=== PATIENT | female | born 1995 | race Caucasian/White ===

== ENCOUNTER 2017-07-29 14:15 | Inpatient (IN) | payer BC, SELFPAY ==
[2017-07-29] MEDS: MOM 30ML SUSPENSION UDC PO (09:00)
[2017-07-29] MEDS: KCL 20MEQ IN D5/NS 1000ML 1,000 ML IV ×2 (14:37→23:51)
[2017-07-29] MEDS ORDERED: LEVALBUTEROL 1.25 MG/0.5 ML CONCENTRATE NEB NEB (14:45)
[2017-07-29] MEDS ORDERED: BISACODYL 10 MG SUPP PR (14:45)
[2017-07-29] MEDS ORDERED: PERCOCET 5MG/325MG TAB PO (14:45)
[2017-07-29 15:34] LABS: BASO % 0.4 % (0.0-1.0); EOS # 0.2 10^3/uL (0.0-0.50); EOS % 2.1 % (0.0-3.0); HEMATOCRIT 38.6 % (36.0-47.0); IMMATURE GRANULOCYTE % 0.2 % (0-3.0); LYMPH # 2.2 10^3/uL (1.5-6.5); LYMPH % 26.6 % (24.0-44.0); MEAN CORPUSCULAR HEMOGLOBIN 31.2 pg (27.0-33.0); MEAN CORPUSCULAR HGB CONC 33.7 g/dl (32.0-36.5); MEAN CORPUSCULAR VOLUME 92.6 fl (80.0-96.0); MONO # 0.7 10^3/uL (0.0-0.8); MONO % 8.5 % (0.0-5.0); NEUTROPHILS # 5.1 10^3/uL (1.8-7.7); NEUTROPHILS % 62.2 % (36.0-66.0); PLATELET COUNT, AUTOMATED 336 10^3/uL (150-450); RED BLOOD COUNT 4.17 10^6/uL (4.00-5.40); RED CELL DISTRIBUTION WIDTH 11.9 % (11.5-14.5); WHITE BLOOD COUNT 8.2 10^3/uL (4.0-10.0)
[2017-07-29 15:51] LABS: ANION GAP 9 MEQ/L (8-16); BLOOD UREA NITROGEN 9 MG/DL (7-18); CALCIUM LEVEL 8.7 MG/DL (8.5-10.1); CARBON DIOXIDE LEVEL 24 MEQ/L (21-32); CHLORIDE LEVEL 108 MEQ/L (98-107); GLOMERULAR FILTRATION RATE > 60.0 (>60); GLUCOSE, FASTING 84 MG/DL (70-100); POTASSIUM SERUM 4.1 MEQ/L (3.5-5.1); SODIUM LEVEL 141 MEQ/L (136-145)
[2017-07-29 15:56] LABS: POS COUNT POS FLAG
[2017-07-29] MEDS: NORCO, ANEXSIA 5/325MG TABLET (HYDROcodone/ACETAMINOPHEN) PO (16:03)
[2017-07-29] MEDS: KETOROLAC 30 MG/ML VIAL (J1885) IV ×2 (16:30→20:56)
[2017-07-29] MEDS: PANTOPRAZOLE 40MG TAB (PROTONIX) PO (18:06)
[2017-07-29] MEDS: LEVALBUTEROL 1.25 MG/0.5 ML CONCENTRATE NEB NEB (19:25)
[2017-07-29 20:56] LABS: PROTHROMBIN TIME 12.2 SECONDS (12.4-14.5)
[2017-07-29] MEDS: HEPARIN SOD (PORCINE) 5000 UNITS/ML VIAL SC (20:56)
[2017-07-29] MEDS: DOCUSATE SODIUM 100 MG CAP PO (20:57)
[2017-07-30] MEDS: LEVALBUTEROL 1.25 MG/0.5 ML CONCENTRATE NEB NEB ×4 (01:36→20:00)
[2017-07-30] MEDS: KETOROLAC 30 MG/ML VIAL (J1885) IV ×4 (03:15→21:13)
[2017-07-30 04:41] LABS: BASO % 0.3 % (0.0-1.0); EOS # 0.1 10^3/uL (0.0-0.50); EOS % 1.8 % (0.0-3.0); HEMATOCRIT 33.8 % (36.0-47.0); HEMOGLOBIN 11.2 g/dl (12.0-16.0); IMMATURE GRANULOCYTE % 0.3 % (0-3.0); LYMPH # 2.5 10^3/uL (1.5-6.5); LYMPH % 34.2 % (24.0-44.0); MEAN CORPUSCULAR HEMOGLOBIN 30.4 pg (27.0-33.0); MEAN CORPUSCULAR HGB CONC 33.1 g/dl (32.0-36.5); MEAN CORPUSCULAR VOLUME 91.6 fl (80.0-96.0); MONO # 0.7 10^3/uL (0.0-0.8); MONO % 9.4 % (0.0-5.0); PLATELET COUNT, AUTOMATED 273 10^3/uL (150-450); RED BLOOD COUNT 3.69 10^6/uL (4.00-5.40); RED CELL DISTRIBUTION WIDTH 11.9 % (11.5-14.5); WHITE BLOOD COUNT 7.4 10^3/uL (4.0-10.0)
[2017-07-30 05:15] LABS: ANION GAP 5 MEQ/L (8-16); BLOOD UREA NITROGEN 8 MG/DL (7-18); CALCIUM LEVEL 8.5 MG/DL (8.5-10.1); CARBON DIOXIDE LEVEL 25 MEQ/L (21-32); CHLORIDE LEVEL 111 MEQ/L (98-107); CREATININE FOR GFR 0.62 MG/DL (0.55-1.30); GLOMERULAR FILTRATION RATE > 60.0 (>60); GLUCOSE, FASTING 100 MG/DL (70-100); POTASSIUM SERUM 3.8 MEQ/L (3.5-5.1); SODIUM LEVEL 141 MEQ/L (136-145)
[2017-07-30] MEDS: LEVOTHYROXINE 75MCG TABLET (0.075MG) PO (05:50)
[2017-07-30] MEDS: NORCO, ANEXSIA 5/325MG TABLET (HYDROcodone/ACETAMINOPHEN) PO (07:39)
[2017-07-30] MEDS ORDERED: MIDAZOLAM INJ 2 MG/2 ML VIAL (J2250) As Ordered ×2 (08:12→08:41)
[2017-07-30] MEDS ORDERED: ROCURONIUM BROMIDE 50 MG/5 ML VIAL As Ordered ×2 (08:12→12:14)
[2017-07-30] MEDS ORDERED: LIDOCAINE 2% INJ 100 MG/5 ML SDV (FOR ANES.) As Ordered (08:12)
[2017-07-30] MEDS ORDERED: PROPOFOL 200 MG/20 ML VIAL As Ordered (08:12)
[2017-07-30] MEDS ORDERED: fentaNYL 100 MCG/2 ML INJECTION (J3010) As Ordered ×3 (08:13→13:37)
[2017-07-30] MEDS ORDERED: GLYCOPYRROLATE INJ 0.2 MG/ML 2 ML VIAL As Ordered ×2 (08:24→12:53)
[2017-07-30] MEDS ORDERED: KETOROLAC 60 MG/2 ML VIAL (J1885) As Ordered (08:31)
[2017-07-30] MEDS: HEPARIN SOD (PORCINE) 5000 UNITS/ML VIAL SC ×2 (09:00→21:12)
[2017-07-30] MEDS: MOM 30ML SUSPENSION UDC PO (09:00)
[2017-07-30] MEDS: DOCUSATE SODIUM 100 MG CAP PO ×2 (09:00→21:11)
[2017-07-30] MEDS: PANTOPRAZOLE 40MG TAB (PROTONIX) PO (09:00)
[2017-07-30] MEDS: fentaNYL 100 MCG/2 ML INJECTION (J3010) IV ×6 (09:11→14:00)
[2017-07-30] MEDS: MIDAZOLAM INJ 2 MG/2 ML VIAL (J2250) IV (09:11)
[2017-07-30] MEDS ORDERED: BUPIVACAINE HCL 0.25% 30 ML VIAL As Ordered (09:38)
[2017-07-30] MEDS: CETACAINE SPRAY 5GM As Ordered (10:11)
[2017-07-30] MEDS: MUPIROCIN 2% OINT 22 GM TUBE As Ordered (10:18)
[2017-07-30] MEDS: ceFAZolin 2 GM/D5W 50 ML IV BAG (J0690 PER 500MG) As Ordered (10:22)
[2017-07-30] MEDS ORDERED: dexameTHASONE 4 MG/ML 1ML VIAL (J1100) As Ordered ×2 (10:43)
[2017-07-30] MEDS: MUPIROCIN 2% OINT 22 GM TUBE TOP (11:47)
[2017-07-30] MEDS ORDERED: FENTANYL 2MCG/ML BUPIVACAINE 0.0625% NACL 250ML IV BAG As Ordered (12:21)
[2017-07-30] MEDS: STERILE TALC POWDER 3GM VIAL As Ordered ×2 (12:43→12:49)
[2017-07-30] MEDS: TALCAIR POWDER BLOWER (CAN ONLY BE USED WITH 3GM TALC VIAL) XX ×2 (12:43→12:49)
[2017-07-30] MEDS ORDERED: ONDANSETRON 4MG/2ML VIAL (J2405) As Ordered ×2 (12:52→14:25)
[2017-07-30] MEDS ORDERED: NEOSTIGMINE 10 MG/10 ML VIAL (J2710) As Ordered (12:52)
[2017-07-30] MEDS: BUPIVACAINE HCL 0.5% 10 ML VIAL As Ordered (13:00)
[2017-07-30] MEDS ORDERED: FENTANYL/BUPIVACAINE/NACL BAG 250 ML EPIDURAL (13:00)
[2017-07-30] MEDS: BUPIVACAINE LIPOSOME/PF 1.3% 20 ML VIAL (13.3MG/ML)(EXPAREL) As Ordered (13:00)
[2017-07-30] MEDS: FENTANYL/BUPIVACAINE/NACL BAG 250 ML EPIDURAL (13:32)
[2017-07-30] MEDS ORDERED: KETOROLAC 30 MG/ML VIAL (J1885) As Ordered (13:40)
[2017-07-30] MEDS ORDERED: WALLBOXKEY XX (13:45)
[2017-07-30] MEDS ORDERED: EPIDURAL/PCA KEYS XX (13:45)
[2017-07-30] MEDS ORDERED: NALOXONE INJ 0.4 MG/1 ML VIAL (J2310) IV (13:45)
[2017-07-30] MEDS ORDERED: ONDANSETRON 4MG/2ML VIAL (J2405) IV ×2 (13:45→14:30)
[2017-07-30 14:00] LABS: HEMATOCRIT 39.7 % (36.0-47.0); HEMOGLOBIN 12.8 g/dl (12.0-16.0); MEAN CORPUSCULAR HEMOGLOBIN 30.6 pg (27.0-33.0); MEAN CORPUSCULAR HGB CONC 32.2 g/dl (32.0-36.5); PLATELET COUNT, AUTOMATED 308 10^3/uL (150-450); RED BLOOD COUNT 4.18 10^6/uL (4.00-5.40); RED CELL DISTRIBUTION WIDTH 11.9 % (11.5-14.5); WHITE BLOOD COUNT 15.1 10^3/uL (4.0-10.0)
[2017-07-30 14:15] LABS: ABG BASE EXCESS -5.2 (-2.0-2.0); ABG HCO3 19.7 MEQ/L (22.0-26.0); ABG O2 SATURATION 99.2 % (95.0-99.0); ABG PARTIAL PRESSURE CO2 36.4 mmHg (35.0-45.0); ABG PARTIAL PRESSURE O2 159.6 mmHg (75.0-100.0); ABG STANDARD HCO3 20.3 MEQ/L (22.0-26.0); ABG TOTAL CO2 20.9 MEQ/L (22.0-29.0); ABG pH (ARTERIAL) 7.352 UNITS (7.350-7.450)
[2017-07-30] MEDS ORDERED: PERCOCET 5MG/325MG TAB PO (14:30)
[2017-07-30] MEDS ORDERED: METOCLOPRAMIDE INJ 10MG/2ML VIAL (J2765) IV (14:30)
[2017-07-30] MEDS: LR 1,000 ML IV (14:30)
[2017-07-30] MEDS: ONDANSETRON 4MG/2ML VIAL (J2405) IV (14:32)
[2017-07-30 14:36] LABS: BLOOD UREA NITROGEN 7 MG/DL (7-18); CALCIUM LEVEL 8.6 MG/DL (8.5-10.1); CARBON DIOXIDE LEVEL 23 MEQ/L (21-32); CHLORIDE LEVEL 109 MEQ/L (98-107); CREATININE FOR GFR 0.83 MG/DL (0.55-1.30); GLOMERULAR FILTRATION RATE > 60.0 (>60); GLUCOSE, FASTING 130 MG/DL (70-100)
[2017-07-30 14:42] LABS: ANION GAP 6 MEQ/L (8-16); SODIUM LEVEL 138 MEQ/L (136-145)
[2017-07-30 14:45] LABS: POTASSIUM SERUM 5.7 MEQ/L (3.5-5.1)
[2017-07-30] MEDS ORDERED: METOCLOPRAMIDE INJ 10MG/2ML VIAL (J2765) As Ordered (14:53)
[2017-07-30] MEDS: METOCLOPRAMIDE INJ 10MG/2ML VIAL (J2765) IV (15:02)
[2017-07-30] MEDS: diphenhydrAMINE INJ 50MG/ML VIAL (J1200) IV (15:42)
[2017-07-30] MEDS: FERROUS FUMARATE PO (18:24)
[2017-07-30] MEDS: CEFAZOLIN SOD 1 GM in APPROPRIATE DILUENT 1 EA IV (18:24)
[2017-07-30] MEDS: NORETHINDRONE PO (18:24)
[2017-07-30] MEDS: ETHINYL ESTRADIOL PO (18:24)
[2017-07-30] MEDS ORDERED: SLF 3 ML SYR IV (23:15)
[2017-07-31] MEDS: LEVALBUTEROL 1.25 MG/0.5 ML CONCENTRATE NEB NEB ×4 (01:10→21:48)
[2017-07-31] MEDS: CEFAZOLIN SOD 1 GM in APPROPRIATE DILUENT 1 EA IV ×3 (02:28→18:03)
[2017-07-31] MEDS: SLF 3 ML SYR IV (03:03)
[2017-07-31] MEDS: KETOROLAC 30 MG/ML VIAL (J1885) IV ×4 (03:03→18:04)
[2017-07-31 05:36] LABS: BASO % 0.1 % (0.0-1.0); IMMATURE GRANULOCYTE % 0.3 % (0-3.0); LYMPH # 2.4 10^3/uL (1.5-6.5); LYMPH % 21.7 % (24.0-44.0); MEAN CORPUSCULAR HEMOGLOBIN 30.5 pg (27.0-33.0); MEAN CORPUSCULAR HGB CONC 32.5 g/dl (32.0-36.5); MEAN CORPUSCULAR VOLUME 93.8 fl (80.0-96.0); MONO # 1.2 10^3/uL (0.0-0.8); MONO % 10.9 % (0.0-5.0); NEUTROPHILS # 7.5 10^3/uL (1.8-7.7); PLATELET COUNT, AUTOMATED 282 10^3/uL (150-450); RED BLOOD COUNT 3.41 10^6/uL (4.00-5.40); RED CELL DISTRIBUTION WIDTH 12.1 % (11.5-14.5); WHITE BLOOD COUNT 11.1 10^3/uL (4.0-10.0)
[2017-07-31 05:40] LABS: HEMOGLOBIN 10.4 g/dl (12.0-16.0)
[2017-07-31 05:48] LABS: ANION GAP 9 MEQ/L (8-16); BLOOD UREA NITROGEN 6 MG/DL (7-18); CALCIUM LEVEL 8.2 MG/DL (8.5-10.1); CARBON DIOXIDE LEVEL 23 MEQ/L (21-32); CHLORIDE LEVEL 109 MEQ/L (98-107); CREATININE FOR GFR 0.75 MG/DL (0.55-1.30); GLOMERULAR FILTRATION RATE > 60.0 (>60); GLUCOSE, FASTING 110 MG/DL (70-100); POTASSIUM SERUM 3.6 MEQ/L (3.5-5.1); SODIUM LEVEL 141 MEQ/L (136-145)
[2017-07-31] MEDS: LEVOTHYROXINE 75MCG TABLET (0.075MG) PO (05:50)
[2017-07-31 08:07] LABS: ALPHA 1 ANTITRYPSIN 243 mg/dL (90-200)
[2017-07-31] MEDS: MOM 30ML SUSPENSION UDC PO (09:00)
[2017-07-31] MEDS: diphenhydrAMINE INJ 50MG/ML VIAL (J1200) IV ×2 (09:27→12:30)
[2017-07-31] MEDS: HEPARIN SOD (PORCINE) 5000 UNITS/ML VIAL SC ×2 (09:27→21:58)
[2017-07-31] MEDS: PANTOPRAZOLE 40MG TAB (PROTONIX) PO (09:28)
[2017-07-31] MEDS: FERROUS FUMARATE PO (09:28)
[2017-07-31] MEDS: DOCUSATE SODIUM 100 MG CAP PO ×2 (09:28→21:00)
[2017-07-31] MEDS: ETHINYL ESTRADIOL PO (09:28)
[2017-07-31] MEDS: NORETHINDRONE PO (09:28)
[2017-07-31] MEDS ORDERED: LIDOCAINE 1% MDV 20ML VIAL As Ordered (15:01)
[2017-07-31] MEDS: FENTANYL/BUPIVACAINE/NACL BAG 250 ML EPIDURAL (17:26)
[2017-07-31] MEDS: SODIUM CHLORIDE 0.9% INJ 10 ML SYR IV (18:02)
[2017-08-01] MEDS: KETOROLAC 30 MG/ML VIAL (J1885) IV ×4 (00:22→18:00)
[2017-08-01] MEDS: ACETAMINOPHEN TAB 650MG DOSE (2X325MG) PO (00:53)
[2017-08-01] MEDS: CEFAZOLIN SOD 1 GM in APPROPRIATE DILUENT 1 EA IV ×2 (01:22→10:33)
[2017-08-01] MEDS: LEVALBUTEROL 1.25 MG/0.5 ML CONCENTRATE NEB NEB ×4 (02:00→20:00)
[2017-08-01] MEDS: SODIUM CHLORIDE 0.9% INJ 10 ML SYR IV ×2 (04:47→18:00)
[2017-08-01 05:00] LABS: BASO % 0.2 % (0.0-1.0); EOS # 0.1 10^3/uL (0.0-0.50); EOS % 0.6 % (0.0-3.0); HEMATOCRIT 29.4 % (36.0-47.0); HEMOGLOBIN 9.8 g/dl (12.0-16.0); IMMATURE GRANULOCYTE % 0.3 % (0-3.0); LYMPH # 2.5 10^3/uL (1.5-6.5); LYMPH % 25.9 % (24.0-44.0); MEAN CORPUSCULAR HEMOGLOBIN 31.7 pg (27.0-33.0); MEAN CORPUSCULAR HGB CONC 33.3 g/dl (32.0-36.5); MEAN CORPUSCULAR VOLUME 95.1 fl (80.0-96.0); MONO # 1.1 10^3/uL (0.0-0.8); MONO % 11.4 % (0.0-5.0); NEUTROPHILS % 61.6 % (36.0-66.0); PLATELET COUNT, AUTOMATED 262 10^3/uL (150-450); RED BLOOD COUNT 3.09 10^6/uL (4.00-5.40); RED CELL DISTRIBUTION WIDTH 12.1 % (11.5-14.5); WHITE BLOOD COUNT 9.8 10^3/uL (4.0-10.0)
[2017-08-01 05:19] LABS: ANION GAP 7 MEQ/L (8-16); BLOOD UREA NITROGEN 5 MG/DL (7-18); CARBON DIOXIDE LEVEL 25 MEQ/L (21-32); CHLORIDE LEVEL 111 MEQ/L (98-107); CREATININE FOR GFR 0.62 MG/DL (0.55-1.30); GLOMERULAR FILTRATION RATE > 60.0 (>60); GLUCOSE, FASTING 97 MG/DL (70-100); POTASSIUM SERUM 3.7 MEQ/L (3.5-5.1); SODIUM LEVEL 143 MEQ/L (136-145)
[2017-08-01] MEDS: LEVOTHYROXINE 75MCG TABLET (0.075MG) PO (06:03)
[2017-08-01] MEDS: PANTOPRAZOLE 40MG TAB (PROTONIX) PO (08:50)
[2017-08-01] MEDS: MOM 30ML SUSPENSION UDC PO (08:50)
[2017-08-01] MEDS: FERROUS FUMARATE PO (08:50)
[2017-08-01] MEDS: DOCUSATE SODIUM 100 MG CAP PO ×2 (08:50→22:10)
[2017-08-01] MEDS: ETHINYL ESTRADIOL PO (08:50)
[2017-08-01] MEDS: NORETHINDRONE PO (08:50)
[2017-08-01] MEDS: HEPARIN SOD (PORCINE) 5000 UNITS/ML VIAL SC ×2 (08:51→22:11)
[2017-08-01] MEDS: FENTANYL/BUPIVACAINE/NACL BAG 250 ML EPIDURAL (12:32)
[2017-08-02] MEDS: KETOROLAC 30 MG/ML VIAL (J1885) IV ×4 (00:42→17:31)
[2017-08-02] MEDS: SODIUM CHLORIDE 0.9% INJ 10 ML SYR IV ×3 (00:43→17:43)
[2017-08-02] MEDS: ACETAMINOPHEN TAB 650MG DOSE (2X325MG) PO ×2 (01:47→16:49)
[2017-08-02] MEDS: LEVALBUTEROL 1.25 MG/0.5 ML CONCENTRATE NEB NEB ×4 (02:00→20:43)
[2017-08-02] MEDS: LEVOTHYROXINE 75MCG TABLET (0.075MG) PO (06:09)
[2017-08-02 06:27] LABS: BASO % 0.2 % (0.0-1.0); EOS # 0.1 10^3/uL (0.0-0.50); EOS % 1.7 % (0.0-3.0); HEMATOCRIT 28.5 % (36.0-47.0); HEMOGLOBIN 9.4 g/dl (12.0-15.5); IMMATURE GRANULOCYTE % 0.2 % (0-3.0); LYMPH # 2.6 10^3/uL (1.5-6.5); LYMPH % 31.1 % (24.0-44.0); MEAN CORPUSCULAR HEMOGLOBIN 30.9 pg (27.0-33.0); MEAN CORPUSCULAR VOLUME 93.8 fl (80.0-96.0); MONO # 0.8 10^3/uL (0.0-0.8); MONO % 9.5 % (0.0-5.0); NEUTROPHILS # 4.8 10^3/uL (1.8-7.7); NEUTROPHILS % 57.3 % (36.0-66.0); PLATELET COUNT, AUTOMATED 285 10^3/uL (150-450); RED BLOOD COUNT 3.04 10^6/uL (4.00-5.40); RED CELL DISTRIBUTION WIDTH 11.9 % (11.5-14.5); WHITE BLOOD COUNT 8.3 10^3/uL (4.0-10.0)
[2017-08-02 06:44] LABS: ANION GAP 5 MEQ/L (8-16); BLOOD UREA NITROGEN 4 MG/DL (7-18); CARBON DIOXIDE LEVEL 26 MEQ/L (21-32); CHLORIDE LEVEL 110 MEQ/L (98-107); GLOMERULAR FILTRATION RATE > 60.0 (>60); GLUCOSE, FASTING 110 MG/DL (70-100); POTASSIUM SERUM 3.6 MEQ/L (3.5-5.1); SODIUM LEVEL 141 MEQ/L (136-145)
[2017-08-02] MEDS: FERROUS FUMARATE PO (09:30)
[2017-08-02] MEDS: ETHINYL ESTRADIOL PO (09:30)
[2017-08-02] MEDS: NORETHINDRONE PO (09:30)
[2017-08-02] MEDS: MOM 30ML SUSPENSION UDC PO (09:31)
[2017-08-02] MEDS: PANTOPRAZOLE 40MG TAB (PROTONIX) PO (09:31)
[2017-08-02] MEDS: DOCUSATE SODIUM 100 MG CAP PO ×2 (09:31→21:18)
[2017-08-02] MEDS: HEPARIN SOD (PORCINE) 5000 UNITS/ML VIAL SC ×2 (09:32→21:18)
[2017-08-02] MEDS: FENTANYL/BUPIVACAINE/NACL BAG 250 ML EPIDURAL (12:25)
[2017-08-03] MEDS: KETOROLAC 30 MG/ML VIAL (J1885) IV ×4 (00:12→18:33)
[2017-08-03] MEDS: LEVALBUTEROL 1.25 MG/0.5 ML CONCENTRATE NEB NEB ×4 (02:00→20:00)
[2017-08-03] MEDS: LEVOTHYROXINE 75MCG TABLET (0.075MG) PO (05:12)
[2017-08-03] MEDS: SODIUM CHLORIDE 0.9% INJ 10 ML SYR IV ×2 (05:12→18:33)
[2017-08-03 05:40] LABS: BASO % 0.1 % (0.0-1.0); EOS # 0.2 10^3/uL (0.0-0.50); EOS % 2.6 % (0.0-3.0); HEMOGLOBIN 9.6 g/dl (12.0-15.5); IMMATURE GRANULOCYTE % 0.3 % (0-3.0); LYMPH # 2.8 10^3/uL (1.5-6.5); LYMPH % 37.8 % (24.0-44.0); MEAN CORPUSCULAR HEMOGLOBIN 31.3 pg (27.0-33.0); MEAN CORPUSCULAR HGB CONC 33.1 g/dl (32.0-36.5); MEAN CORPUSCULAR VOLUME 94.5 fl (80.0-96.0); MONO # 0.6 10^3/uL (0.0-0.8); MONO % 7.9 % (0.0-5.0); NEUTROPHILS # 3.8 10^3/uL (1.8-7.7); NEUTROPHILS % 51.3 % (36.0-66.0); PLATELET COUNT, AUTOMATED 312 10^3/uL (150-450); RED BLOOD COUNT 3.07 10^6/uL (4.00-5.40); RED CELL DISTRIBUTION WIDTH 11.9 % (11.5-14.5); WHITE BLOOD COUNT 7.4 10^3/uL (4.0-10.0)
[2017-08-03 05:53] LABS: ANION GAP 3 MEQ/L (8-16); BLOOD UREA NITROGEN 4 MG/DL (7-18); CARBON DIOXIDE LEVEL 27 MEQ/L (21-32); CHLORIDE LEVEL 111 MEQ/L (98-107); CREATININE FOR GFR 0.56 MG/DL (0.55-1.30); GLOMERULAR FILTRATION RATE > 60.0 (>60); GLUCOSE, FASTING 93 MG/DL (70-100); POTASSIUM SERUM 3.9 MEQ/L (3.5-5.1); SODIUM LEVEL 141 MEQ/L (136-145)
[2017-08-03] MEDS: MOM 30ML SUSPENSION UDC PO (07:56)
[2017-08-03] MEDS: DOCUSATE SODIUM 100 MG CAP PO ×2 (07:56→20:46)
[2017-08-03] MEDS: PANTOPRAZOLE 40MG TAB (PROTONIX) PO (07:57)
[2017-08-03] MEDS: ETHINYL ESTRADIOL PO (07:58)
[2017-08-03] MEDS: FERROUS FUMARATE PO (07:58)
[2017-08-03] MEDS: HEPARIN SOD (PORCINE) 5000 UNITS/ML VIAL SC ×2 (07:58→20:51)
[2017-08-03] MEDS: NORETHINDRONE PO (07:58)
[2017-08-03] MEDS: PERCOCET 5MG/325MG TAB PO ×2 (11:20→18:33)
[2017-08-03] MEDS: FENTANYL/BUPIVACAINE/NACL BAG 250 ML EPIDURAL (12:00)
[2017-08-04] MEDS: KETOROLAC 30 MG/ML VIAL (J1885) IV ×2 (00:28→05:51)
[2017-08-04] MEDS: NORCO, ANEXSIA 5/325MG TABLET (HYDROcodone/ACETAMINOPHEN) PO ×2 (00:29→05:50)
[2017-08-04] MEDS: LEVALBUTEROL 1.25 MG/0.5 ML CONCENTRATE NEB NEB ×2 (02:00→08:00)
[2017-08-04] MEDS: LEVOTHYROXINE 75MCG TABLET (0.075MG) PO (05:50)
[2017-08-04] MEDS: SODIUM CHLORIDE 0.9% INJ 10 ML SYR IV (05:50)
[2017-08-04 06:06] LABS: BASO % 0.3 % (0.0-1.0); EOS # 0.2 10^3/uL (0.0-0.50); EOS % 3.6 % (0.0-3.0); HEMATOCRIT 29.8 % (36.0-47.0); HEMOGLOBIN 9.8 g/dl (12.0-15.5); IMMATURE GRANULOCYTE % 0.2 % (0-3.0); LYMPH # 2.1 10^3/uL (1.5-6.5); LYMPH % 33.4 % (24.0-44.0); MEAN CORPUSCULAR HEMOGLOBIN 30.3 pg (27.0-33.0); MEAN CORPUSCULAR HGB CONC 32.9 g/dl (32.0-36.5); MEAN CORPUSCULAR VOLUME 92.3 fl (80.0-96.0); MONO # 0.5 10^3/uL (0.0-0.8); MONO % 7.9 % (0.0-5.0); NEUTROPHILS # 3.5 10^3/uL (1.8-7.7); NEUTROPHILS % 54.6 % (36.0-66.0); PLATELET COUNT, AUTOMATED 332 10^3/uL (150-450); RED BLOOD COUNT 3.23 10^6/uL (4.00-5.40); RED CELL DISTRIBUTION WIDTH 11.7 % (11.5-14.5); WHITE BLOOD COUNT 6.3 10^3/uL (4.0-10.0)
[2017-08-04 06:25] LABS: ANION GAP 5 MEQ/L (8-16); BLOOD UREA NITROGEN 4 MG/DL (7-18); CALCIUM LEVEL 8.4 MG/DL (8.5-10.1); CARBON DIOXIDE LEVEL 27 MEQ/L (21-32); CHLORIDE LEVEL 109 MEQ/L (98-107); CREATININE FOR GFR 0.51 MG/DL (0.55-1.30); GLOMERULAR FILTRATION RATE > 60.0 (>60); GLUCOSE, FASTING 91 MG/DL (70-100); POTASSIUM SERUM 3.9 MEQ/L (3.5-5.1); SODIUM LEVEL 141 MEQ/L (136-145)
[2017-08-04] MEDS: PANTOPRAZOLE 40MG TAB (PROTONIX) PO (08:23)
[2017-08-04] MEDS: DOCUSATE SODIUM 100 MG CAP PO (08:24)
[2017-08-04] MEDS: ETHINYL ESTRADIOL PO (08:24)
[2017-08-04] MEDS: FERROUS FUMARATE PO (08:24)
[2017-08-04] MEDS: NORETHINDRONE PO (08:24)
[2017-08-04] MEDS: MOM 30ML SUSPENSION UDC PO (08:24)
[2017-08-04] MEDS: HEPARIN SOD (PORCINE) 5000 UNITS/ML VIAL SC (08:24)
[2017-08-04] MEDS: PERCOCET 5MG/325MG TAB PO (10:04)
== END 2017-08-04 10:36 | disposition home or self-care (01) | DRG 121 ==
LOC: M PCU 14:15
PROC: 0BBK4ZZ Excision of Right Lung, Percutaneous Endoscopic Approach (ICD-10-PCS; principal; 2017-07-30 09:30)
PROC: 0BNK4ZZ Release Right Lung, Percutaneous Endoscopic Approach (ICD-10-PCS; 2017-07-30 09:30)
PROC: 0BJQ4ZZ Inspection of Pleura, Percutaneous Endoscopic Approach (ICD-10-PCS; 2017-07-30 09:30)
PROC: 3E0L3GC Introduction of Other Therapeutic Substance into Pleural Cavity, Percutaneous Approach (ICD-10-PCS; 2017-07-30 09:30)
PROC: 02HV33Z Insertion of Infusion Device into Superior Vena Cava, Percutaneous Approach (ICD-10-PCS; 2017-07-30 09:52)
DX: J93.83 Other pneumothorax (principal); J86.0 Pyothorax with fistula; Q33.0 Congenital cystic lung; E03.9 Hypothyroidism, unspecified; Z79.899 Other long term (current) drug therapy

== ENCOUNTER → 2017-09-12 | Outpatient (CLI) | payer BC | LOC: M SMT 08:42 | DX: R91.8 Other nonspecific abnormal finding of lung field (principal); Z98.890 Other specified postprocedural states | CPT/HCPCS: 71046 ==